=== PATIENT | male | born 1950 | race Caucasian/White ===

== ENCOUNTER 2023-02-15 20:14 | Inpatient (IN) | payer MEDICARE ==
[2023-02-16 00:20] VITALS: BMI 28.5
[2023-02-16 00:58] LABS: Troponin I 0.096 ng/mL (< 0.028)
[2023-02-16] MEDS ORDERED: Albuterol 2.5 MG (3 mL) NEB NEB PRN (03:24)
[2023-02-16] MEDS ORDERED: dilTIAZem 125 MG in Sodium Chloride 0.9% 100 ML IVPB SCH ×2 (03:30→04:30)
[2023-02-16] MEDS ORDERED: dilTIAZem 25 MG/5 ML VIAL SLOW IVP SCH (04:00)
[2023-02-16] MEDS ORDERED: Furosemide 40 MG (4 mL) VIAL SLOW IVP SCH ×2 (04:00→14:00)
[2023-02-16 04:16] LABS: #Neutrophils 9.9 10x3/uL (1.5-8.4); %Basophils 0.1 % (0.0-2.0); %Eosinophils 0.3 % (0.0-6.0); %Lymphocytes 5.9 % (18.0-47.0); %Monocytes 8.1 % (0.0-10.0); %Neutrophils 84.8 % (40.0-75.0); Hematocrit 32.8 % (38.8-50.0); Hemoglobin 9.8 g/dL (13.5-17.5); Mean Corpuscular HGB CONC 29.9 g/dL (32.0-36.0); Mean Corpuscular Hemoglobin 22.3 pg (27.0-33.0); Mean Corpuscular Volume 74.5 fl (81.2-95.1); Platelet Count 303 10x3/uL (150-450); RBC Distribution Width 18.9 % (11.5-14.5); White Blood Cell (WBC) Count 11.7 10x3/uL (3.5-10.5)
[2023-02-16 04:17] LABS: Anion Gap 15 mmol/L (10-20); BUN (Urea Nitrogen) 33 mg/dL (8.4-25.7); Calc. Creatinine Clearance 56 mL/min (70-130); Calcium 8.9 mg/dL (7.8-10.44); Carbon Dioxide 27 mmol/L (23-31); Chloride 103 mmol/L (98-107); Estimated GFR 48; Glucose 103 mg/dL (83-110); Magnesium 2.3 mg/dL (1.6-2.6); Potassium 4.8 mmol/L (3.5-5.1); Sodium 140 mmol/L (136-145)
[2023-02-16 04:24] LABS: Troponin I 0.103 ng/mL (< 0.028)
[2023-02-16] MEDS: methylPREDNISolone Sod Succ 40 MG VIAL IVP SCH (04:40)
[2023-02-16] MEDS: Nitroglycerin 2% Ointment 1 INCH/1 GM Packet TOP SCH ×3 (04:40→20:40)
[2023-02-16 05:20] LABS: Anisocytosis MODERATE=16-30 cells (100X) (0-5/hpf); Hypochromia SLIGHT = 6-15 cells (100X) (0-5/hpf); Macrocytosis SLIGHT = 6-15 cells (100X) (0-5/hpf); Microcytosis MODERATE=15-30 cells (100X) (0-5/hpf); Poikilocytosis SLIGHT = 6-15 cells (100X) (0-5/hpf); Polychromasia SLIGHT = 2-3 cells (100X) (0-2/hpf)
[2023-02-16 05:22] LABS: Target Cells MODERATE= 6-15 cells (100X) (0-1/hpf)
[2023-02-16 05:45] LABS: Legionella Urinary Ag Negative (Negative); Strep pneumo Urine Ag NEGATIVE (NEGATIVE)
[2023-02-16 05:59] LABS: SARS-CoV-2 NAA Rapid Test Not Detected (NotDetected)
[2023-02-16 06:29] LABS: Troponin I 0.114 ng/mL (< 0.028)
[2023-02-16] MEDS ORDERED: Digoxin 0.5 MG/2 ML AMP SLOW IVP SCH (08:00)
[2023-02-16] MEDS: Carvedilol 6.25 MG TAB PO SCH ×2 (08:16→17:39)
[2023-02-16] MEDS: Clopidogrel Bisulfate 75 MG TAB PO SCH (08:16)
[2023-02-16] MEDS: Loratadine 10 MG TAB PO SCH (08:16)
[2023-02-16] MEDS: Cilostazol 100 MG TAB PO SCH (08:59)
[2023-02-16] MEDS ORDERED: Enoxaparin 40 MG (0.4 mL) SYRINGE SC SCH (09:00)
[2023-02-16] MEDS ORDERED: Atorvastatin Calcium 40 MG TAB PO SCH (09:00)
[2023-02-16] MEDS: Ipratropium/Albuterol 3 ML NEB NEB SCH ×4 (09:00→20:08)
[2023-02-16] MEDS ORDERED: Aspirin 81 mg Enteric Coated Tablet PO SCH (09:00)
[2023-02-16] MEDS ORDERED: Amlodipine 10 MG TAB PO SCH (09:00)
[2023-02-16] MEDS ORDERED: Amiodarone 200 MG TAB PO SCH ×3 (10:00→21:00)
[2023-02-16] MEDS: Sacubitril 24MG/Valsartan 26 MG TAB PO SCH ×2 (10:39→20:40)
[2023-02-16] MEDS ORDERED: Apixaban 5 MG TAB PO SCH (11:00)
[2023-02-16] MEDS: Metoprolol Tartrate 5 MG (5 mL) VIAL IVP PRN (13:00)
[2023-02-16] MEDS: Atorvastatin Calcium 40 MG TAB PO SCH (20:40)
[2023-02-16] MEDS: Apixaban 5 MG TAB PO SCH (20:40)
[2023-02-17] MEDS: Metoprolol Tartrate 5 MG (5 mL) VIAL IVP PRN (00:13)
[2023-02-17] MEDS: methylPREDNISolone Sod Succ 40 MG VIAL IVP SCH (03:55)
[2023-02-17] MEDS: Nitroglycerin 2% Ointment 1 INCH/1 GM Packet TOP SCH ×3 (03:55→20:08)
[2023-02-17 04:17] LABS: #Monocytes 0.8 10x3/uL (0.0-1.1); #Neutrophils 9.9 10x3/uL (1.5-8.4); %Basophils 0.1 % (0.0-2.0); %Lymphocytes 4.6 % (18.0-47.0); %Monocytes 6.7 % (0.0-10.0); Hematocrit 33.5 % (38.8-50.0); Mean Corpuscular HGB CONC 29.9 g/dL (32.0-36.0); Mean Corpuscular Hemoglobin 22.2 pg (27.0-33.0); Mean Corpuscular Volume 74.3 fl (81.2-95.1); Mean Platelet Volume 10.2 fl (7.4-10.4); Platelet Count 315 10x3/uL (150-450); RBC Distribution Width 18.4 % (11.5-14.5); Red Blood Cell (RBC) Count 4.51 10x6/uL (4.32-5.72); White Blood Cell (WBC) Count 11.2 10x3/uL (3.5-10.5)
[2023-02-17 04:28] LABS: Anion Gap 12 mmol/L (10-20); BUN (Urea Nitrogen) 33 mg/dL (8.4-25.7); Calc. Creatinine Clearance 74 mL/min (70-130); Calcium 8.6 mg/dL (7.8-10.44); Carbon Dioxide 27 mmol/L (23-31); Chloride 103 mmol/L (98-107); Estimated GFR 68; Glucose 106 mg/dL (83-110); Potassium 4.5 mmol/L (3.5-5.1); Sodium 137 mmol/L (136-145)
[2023-02-17 06:59] LABS: Anisocytosis MODERATE=16-30 cells (100X) (0-5/hpf); Hypochromia MODERATE=16-30 cells (100X) (0-5/hpf); Macrocytosis SLIGHT = 6-15 cells (100X) (0-5/hpf); Microcytosis MODERATE=15-30 cells (100X) (0-5/hpf); Poikilocytosis SLIGHT = 6-15 cells (100X) (0-5/hpf); Polychromasia SLIGHT = 2-3 cells (100X) (0-2/hpf)
[2023-02-17 07:00] LABS: Ovalocytes SLIGHT = 2-5 cells (100X) (0-1/hpf)
[2023-02-17] MEDS: Carvedilol 6.25 MG TAB PO SCH ×2 (07:53→19:14)
[2023-02-17] MEDS: Sacubitril 24MG/Valsartan 26 MG TAB PO SCH ×2 (07:53→20:07)
[2023-02-17] MEDS: Loratadine 10 MG TAB PO SCH (07:53)
[2023-02-17] MEDS: Apixaban 5 MG TAB PO SCH ×2 (07:54→20:07)
[2023-02-17] MEDS: Cilostazol 100 MG TAB PO SCH (07:55)
[2023-02-17] MEDS: Clopidogrel Bisulfate 75 MG TAB PO SCH (07:55)
[2023-02-17] MEDS: Ipratropium/Albuterol 3 ML NEB NEB SCH ×2 (08:18→10:00)
[2023-02-17] MEDS: Furosemide 40 MG (4 mL) VIAL SLOW IVP SCH (09:35)
[2023-02-17] MEDS: Ipratropium Bromide 2.5 ml Neb NEB SCH ×3 (10:00→19:13)
[2023-02-17] MEDS ORDERED: PROPOFOL 20 ML ONE (11:33)
[2023-02-17] MEDS ORDERED: Phenylephrine 40 MG/NS 250 ML 0 ML ONE (11:33)
[2023-02-17] MEDS ORDERED: Lidocaine 1% PF 5 ML VIAL ONE (11:34)
[2023-02-17] MEDS ORDERED: Benzocaine/Menthol 1 LOZ LOZ PO PRN (16:25)
[2023-02-17] MEDS: Atorvastatin Calcium 40 MG TAB PO SCH (20:07)
[2023-02-17] MEDS: Doxycycline 100 MG in Sodium Chloride 0.9% 100 ML IVPB SCH (20:07)
[2023-02-17] MEDS: Amiodarone 200 MG TAB PO SCH (20:08)
[2023-02-18] MEDS: methylPREDNISolone Sod Succ 40 MG VIAL IVP SCH (05:00)
[2023-02-18] MEDS: Nitroglycerin 2% Ointment 1 INCH/1 GM Packet TOP SCH ×2 (05:00→13:12)
[2023-02-18] MEDS: Ipratropium Bromide 2.5 ml Neb NEB SCH ×2 (07:20→11:15)
[2023-02-18 07:47] LABS: #Neutrophils 11.6 10x3/uL (1.5-8.4); %Basophils 0.1 % (0.0-2.0); %Eosinophils 0.1 % (0.0-6.0); %Lymphocytes 3.4 % (18.0-47.0); %Monocytes 7.4 % (0.0-10.0); %Neutrophils 88.4 % (40.0-75.0); Hematocrit 36.8 % (38.8-50.0); Hemoglobin 10.9 g/dL (13.5-17.5); Mean Corpuscular HGB CONC 29.6 g/dL (32.0-36.0); Mean Corpuscular Hemoglobin 22.1 pg (27.0-33.0); Mean Corpuscular Volume 74.5 fl (81.2-95.1); Mean Platelet Volume 10.3 fl (7.4-10.4); Platelet Count 328 10x3/uL (150-450); RBC Distribution Width 19.2 % (11.5-14.5); Red Blood Cell (RBC) Count 4.94 10x6/uL (4.32-5.72); White Blood Cell (WBC) Count 13.1 10x3/uL (3.5-10.5)
[2023-02-18 08:09] LABS: Anion Gap 14 mmol/L (10-20); BUN (Urea Nitrogen) 34 mg/dL (8.4-25.7); Calc. Creatinine Clearance 69 mL/min (70-130); Calcium 8.5 mg/dL (7.8-10.44); Carbon Dioxide 22 mmol/L (23-31); Chloride 106 mmol/L (98-107); Estimated GFR 69; Glucose 95 mg/dL (83-110); Potassium 5.1 mmol/L (3.5-5.1); Sodium 137 mmol/L (136-145)
[2023-02-18 08:18] VITALS: TEMP 97.6
[2023-02-18] MEDS: Doxycycline 100 MG in Sodium Chloride 0.9% 100 ML IVPB SCH ×2 (08:41→10:49)
[2023-02-18] MEDS: Furosemide 40 MG (4 mL) VIAL SLOW IVP SCH (08:41)
[2023-02-18] MEDS: Cilostazol 100 MG TAB PO SCH (08:41)
[2023-02-18] MEDS: Amiodarone 200 MG TAB PO SCH (08:42)
[2023-02-18] MEDS: Carvedilol 6.25 MG TAB PO SCH (08:42)
[2023-02-18] MEDS: Loratadine 10 MG TAB PO SCH (08:42)
[2023-02-18] MEDS: Apixaban 5 MG TAB PO SCH (08:42)
[2023-02-18] MEDS: Sacubitril 24MG/Valsartan 26 MG TAB PO SCH (08:42)
[2023-02-18] MEDS: Clopidogrel Bisulfate 75 MG TAB PO SCH (08:42)
[2023-02-18 12:30] VITALS: BP 159/63
== END 2023-02-18 13:30 | disposition home or self-care (01) | DRG 308 ==
LOC: CSHTELE 23:18 → UNDOADMIN 23:18 → CSHTELE 02-16 03:16
PROVIDERS: ADMIT Family Medicine; ATTEND Internal Medicine
PROC: 5A2204Z Restoration of Cardiac Rhythm, Single (ICD-10-PCS; principal; 2023-02-16)
PROC: B246ZZ4 Ultrasonography of Right and Left Heart, Transesophageal (ICD-10-PCS; 2023-02-16)
DX: I48.0 Paroxysmal atrial fibrillation (principal); I50.23 Acute on chronic systolic (congestive) heart failure; I24.89 Other forms of acute ischemic heart disease; J44.1 Chronic obstructive pulmonary disease with (acute) exacerbation; I11.0 Hypertensive heart disease with heart failure; I47.10 Supraventricular tachycardia, unspecified; I48.92 Unspecified atrial flutter; I73.9 Peripheral vascular disease, unspecified; E78.5 Hyperlipidemia, unspecified; F17.210 Nicotine dependence, cigarettes, uncomplicated; I25.10 Atherosclerotic heart disease of native coronary artery without angina pectoris; K21.9 Gastro-esophageal reflux disease without esophagitis; Z88.8 Allergy status to other drugs, medicaments and biological substances; Z79.899 Other long term (current) drug therapy; Z79.82 Long term (current) use of aspirin; Z98.890 Other specified postprocedural states; Z86.73 Personal history of transient ischemic attack (TIA), and cerebral infarction without residual deficits; Z95.1 Presence of aortocoronary bypass graft; Z11.52 Encounter for screening for COVID-19
CPT/HCPCS: 36415; 71045; 71046; 80048; 83735; 83880; 84484; 85025; 87070; 87205; 87449; 87804; 87899; 92960; 93005; 93010; 93312; 94640; 94760; J1160; J1650; J1940; J2704; J2920; J3490; J7620; U0002

== ENCOUNTER 2023-04-04 14:50 | Inpatient (IN) | payer MEDICARE ==
[2023-04-04 15:28] LABS: #Eosinphils 0.1 10x3/uL (0.0-0.5); #Monocytes 0.9 10x3/uL (0.0-1.1); #Neutrophils 11.9 10x3/uL (1.5-8.4); %Basophils 0.3 % (0.0-2.0); %Eosinophils 0.4 % (0.0-6.0); %Lymphocytes 3.8 % (18.0-47.0); %Monocytes 6.7 % (0.0-10.0); Hematocrit 31.1 % (38.8-50.0); Hemoglobin 9.4 g/dL (13.5-17.5); Mean Corpuscular HGB CONC 30.2 g/dL (32.0-36.0); Mean Corpuscular Hemoglobin 25.3 pg (27.0-33.0); Mean Corpuscular Volume 83.8 fl (81.2-95.1); Mean Platelet Volume 9.7 fl (7.4-10.4); Platelet Count 329 10x3/uL (150-450); RBC Distribution Width 18.5 % (11.5-14.5); Red Blood Cell (RBC) Count 3.71 10x6/uL (4.32-5.72); White Blood Cell (WBC) Count 13.8 10x3/uL (3.5-10.5)
[2023-04-04 15:31] LABS: ALT (SGPT) 20 U/L (8-55); AST (SGOT) 18 U/L (5-34); Albumin 3.6 g/dL (3.4-4.8); Alkaline Phosphatase 54 U/L (40-110); Anion Gap 12 mmol/L (10-20); BUN (Urea Nitrogen) 27 mg/dL (8.4-25.7); Bilirubin, Total 0.9 mg/dL (0.2-1.2); Calc. Creatinine Clearance 0 mL/min (70-130); Calcium 8.4 mg/dL (7.8-10.44); Carbon Dioxide 25 mmol/L (23-31); Chloride 104 mmol/L (98-107); Estimated GFR 69; Globulin 2.3 g/dL (2.4-3.5); Glucose 85 mg/dL (83-110); INR-International Normal Ratio 1.1; PTT 25.9 sec (22.0-33.0); Protein, Total 5.9 g/dL (5.8-8.1); Prothrombin Time 11.7 sec (9.5-12.1); Sodium 137 mmol/L (136-145)
[2023-04-04 15:35] LABS: Troponin I 0.079 ng/mL (< 0.028)
[2023-04-04] MEDS ORDERED: dilTIAZem 25 MG/5 ML VIAL ONE (15:42)
[2023-04-04] MEDS ORDERED: Magnesium 2 GM/50 ML BAG (IN WATER) ONE (15:43)
[2023-04-04] MEDS ORDERED: Digoxin 0.5 MG/2 ML AMP ONE (15:43)
[2023-04-04] MEDS ORDERED: Aspirin Chewable 81 MG TAB ONE (16:28)
[2023-04-04 17:30] LABS: Influenza A by NAA Not Detected (NotDetected); Influenza B by NAA Not Detected (NotDetected); SARS-CoV-2 NAA Rapid Test Not Detected (NotDetected)
[2023-04-04 17:50] LABS: Troponin I 0.068 ng/mL (< 0.028)
[2023-04-04 18:02] LABS: Bilirubin Neg (Negative); Blood, Urine Negative (Negative); Clarity Clear (Clear); Glucose, Urine (Dipstick) Normal (Negative); Ketone, Urine Negative (Negative); Leukocyte 25 (Negative); Nitrite Negative (Negative); Protein, Urine (Dipstick) 30 mg/dl (Neg-Trace); Specific Gravity, Urine 1.015 (1.005-1.030); Urobilinogen Normal mg/dL (Less than 2)
[2023-04-04 18:15] LABS: CAUTI Indications for Culture Pelvic or flank pain; RBC/HPF 0-3 HPF (0-3); Squamous Epithelial 0-3 HPF (0-3)
[2023-04-04 18:16] LABS: Bacteria/HPF 1+ HPF (None Seen); Mucous/LPF 1+ LPF (<2+)
[2023-04-04] MEDS ORDERED: Acetaminophen 650 MG Suppository PR PRN (18:16)
[2023-04-04 18:17] LABS: Urine Culture Reflex No No
[2023-04-04 20:46] LABS: Troponin I 0.073 ng/mL (< 0.028)
[2023-04-04] MEDS: Apixaban 5 MG TAB PO SCH (21:26)
[2023-04-04] MEDS: Sacubitril 24MG/Valsartan 26 MG TAB PO SCH (21:32)
[2023-04-04] MEDS: Furosemide 40 MG TAB PO SCH (21:32)
[2023-04-04] MEDS: Atorvastatin Calcium 40 MG TAB PO SCH (21:32)
[2023-04-05 07:22] LABS: #Eosinphils 0.1 10x3/uL (0.0-0.5); #Monocytes 0.8 10x3/uL (0.0-1.1); #Neutrophils 10.3 10x3/uL (1.5-8.4); %Basophils 0.3 % (0.0-2.0); %Eosinophils 0.9 % (0.0-6.0); %Lymphocytes 3.6 % (18.0-47.0); %Monocytes 6.8 % (0.0-10.0); %Neutrophils 85.5 % (40.0-75.0); Hematocrit 29.3 % (38.8-50.0); Hemoglobin 8.7 g/dL (13.5-17.5); Mean Corpuscular HGB CONC 29.7 g/dL (32.0-36.0); Mean Corpuscular Hemoglobin 24.6 pg (27.0-33.0); Mean Corpuscular Volume 82.8 fl (81.2-95.1); Mean Platelet Volume 9.9 fl (7.4-10.4); Platelet Count 312 10x3/uL (150-450); RBC Distribution Width 18.6 % (11.5-14.5); Red Blood Cell (RBC) Count 3.54 10x6/uL (4.32-5.72)
[2023-04-05 07:26] LABS: Anion Gap 12 mmol/L (10-20); BUN (Urea Nitrogen) 21 mg/dL (8.4-25.7); Calc. Creatinine Clearance 76 mL/min (70-130); Carbon Dioxide 27 mmol/L (23-31); Chloride 103 mmol/L (98-107); Estimated GFR 85; Glucose 94 mg/dL (83-110); Potassium 3.9 mmol/L (3.5-5.1); Sodium 138 mmol/L (136-145)
[2023-04-05] MEDS: Carvedilol 6.25 MG TAB PO SCH ×2 (08:55→10:12)
[2023-04-05] MEDS: Clopidogrel Bisulfate 75 MG TAB PO SCH (08:55)
[2023-04-05] MEDS: Furosemide 40 MG TAB PO SCH (08:55)
[2023-04-05] MEDS: Amiodarone 200 MG TAB PO SCH (08:55)
[2023-04-05] MEDS: Nitroglycerin 0.4 MG TAB (25 Tab Bottle) SL PRN (18:18)
[2023-04-05] MEDS: Carvedilol 12.5 MG TAB PO SCH (18:18)
[2023-04-05 18:47] LABS: Troponin I 0.097 ng/mL (< 0.028)
[2023-04-05 19:21] LABS: Actual Bicarbonate (HCO3a) 29.7 mEq/L (22-28); Analyzer IN Cardio CS ICU; Base Excess (BEa) 5.8 mEq/L (-2.0 to +3.0); CO2 Tension 40.2 mmHg (35.0-45.0); Calcium, Ionized (arterial) 1.08 mmol/L (1.12-1.30); Critical Notified By: CP.PH; Critical Notified Whom: RN-Brianna; Hematocrit-ABG 27 % (42.0-52.0); Hemoglobin (Hb) 9.3 g/dL (14.0-18.0); O2 Tension (PaO2), arterial 66.8 mmHg (> 70.0); Potassium - ABG Lab 4.06 mmol/L (3.70-5.30); Puncture Site LRA; RapidComm Collect By CP.PH; pH, Arterial 7.486 (7.35-7.45)
[2023-04-05] MEDS: Ipratropium/Albuterol 3 ML NEB NEB PRN (19:40)
[2023-04-05] MEDS: Potassium Chloride 20 MEQ TAB PO SCH (19:53)
[2023-04-05] MEDS: Atorvastatin Calcium 40 MG TAB PO SCH (20:45)
[2023-04-05] MEDS: Furosemide 40 MG (4 mL) VIAL SLOW IVP SCH (23:36)
[2023-04-06 05:35] LABS: #Eosinphils 0.1 10x3/uL (0.0-0.5); #Monocytes 0.7 10x3/uL (0.0-1.1); %Basophils 0.3 % (0.0-2.0); %Eosinophils 0.9 % (0.0-6.0); %Lymphocytes 3.1 % (18.0-47.0); %Monocytes 6.1 % (0.0-10.0); %Neutrophils 85.6 % (40.0-75.0); Hematocrit 30.3 % (38.8-50.0); Hemoglobin 9.1 g/dL (13.5-17.5); Mean Corpuscular Hemoglobin 24.7 pg (27.0-33.0); Mean Corpuscular Volume 82.1 fl (81.2-95.1); Mean Platelet Volume 9.8 fl (7.4-10.4); Platelet Count 333 10x3/uL (150-450); RBC Distribution Width 18.5 % (11.5-14.5); Red Blood Cell (RBC) Count 3.69 10x6/uL (4.32-5.72); White Blood Cell (WBC) Count 11.7 10x3/uL (3.5-10.5)
[2023-04-06 05:42] LABS: Anion Gap 13 mmol/L (10-20); BUN (Urea Nitrogen) 24 mg/dL (8.4-25.7); Calc. Creatinine Clearance 64 mL/min (70-130); Calcium 8.2 mg/dL (7.8-10.44); Carbon Dioxide 30 mmol/L (23-31); Chloride 99 mmol/L (98-107); Estimated GFR 69; Glucose 94 mg/dL (83-110); Potassium 4.4 mmol/L (3.5-5.1); Sodium 138 mmol/L (136-145)
[2023-04-06 05:49] LABS: Troponin I 0.073 ng/mL (< 0.028)
[2023-04-06] MEDS: Furosemide 20 MG (2 mL) VIAL SLOW IVP SCH (10:49)
[2023-04-06] MEDS: Digoxin 0.125 MG TAB PO SCH (14:45)
[2023-04-06] MEDS: Carvedilol 3.125 MG TAB PO SCH (17:21)
[2023-04-06] MEDS: Acetaminophen 325 MG TAB PO PRN (20:51)
[2023-04-06] MEDS: Sacubitril 24MG/Valsartan 26 MG TAB PO SCH (21:01)
[2023-04-07 03:54] LABS: #Basophils 0.1 10x3/uL (0.0-0.2); #Eosinphils 0.1 10x3/uL (0.0-0.5); #Monocytes 0.8 10x3/uL (0.0-1.1); #Neutrophils 7.4 10x3/uL (1.5-8.4); %Basophils 0.5 % (0.0-2.0); %Eosinophils 1.2 % (0.0-6.0); %Lymphocytes 5.1 % (18.0-47.0); %Monocytes 8.4 % (0.0-10.0); %Neutrophils 80.5 % (40.0-75.0); Hematocrit 29.5 % (38.8-50.0); Hemoglobin 9.1 g/dL (13.5-17.5); Mean Corpuscular HGB CONC 30.8 g/dL (32.0-36.0); Mean Corpuscular Hemoglobin 25.1 pg (27.0-33.0); Mean Corpuscular Volume 81.3 fl (81.2-95.1); Mean Platelet Volume 9.8 fl (7.4-10.4); Platelet Count 300 10x3/uL (150-450); RBC Distribution Width 18.8 % (11.5-14.5); Red Blood Cell (RBC) Count 3.63 10x6/uL (4.32-5.72); White Blood Cell (WBC) Count 9.2 10x3/uL (3.5-10.5)
[2023-04-07 04:21] LABS: Anion Gap 11 mmol/L (10-20); BUN (Urea Nitrogen) 36 mg/dL (8.4-25.7); Calc. Creatinine Clearance 54 mL/min (70-130); Calcium 8.3 mg/dL (7.8-10.44); Carbon Dioxide 28 mmol/L (23-31); Chloride 101 mmol/L (98-107); Estimated GFR 58; Glucose 102 mg/dL (83-110); Potassium 4.3 mmol/L (3.5-5.1); Sodium 136 mmol/L (136-145)
[2023-04-07] MEDS ORDERED: Furosemide 40 MG TAB PO SCH (09:00)
[2023-04-07] MEDS: Valsartan 80 MG TAB PO SCH (09:04)
[2023-04-07] MEDS: Digoxin 0.125 MG TAB PO SCH (09:05)
[2023-04-08 03:48] LABS: #Eosinphils 0.2 10x3/uL (0.0-0.5); #Monocytes 0.7 10x3/uL (0.0-1.1); #Neutrophils 7.4 10x3/uL (1.5-8.4); %Basophils 0.4 % (0.0-2.0); %Eosinophils 2.2 % (0.0-6.0); %Lymphocytes 5.5 % (18.0-47.0); %Monocytes 7.8 % (0.0-10.0); %Neutrophils 81.6 % (40.0-75.0); Hematocrit 30.2 % (38.8-50.0); Mean Corpuscular HGB CONC 29.8 g/dL (32.0-36.0); Mean Corpuscular Hemoglobin 24.5 pg (27.0-33.0); Mean Corpuscular Volume 82.3 fl (81.2-95.1); Mean Platelet Volume 10.1 fl (7.4-10.4); Platelet Count 304 10x3/uL (150-450); RBC Distribution Width 18.7 % (11.5-14.5); Red Blood Cell (RBC) Count 3.67 10x6/uL (4.32-5.72)
[2023-04-08 04:17] LABS: Anion Gap 10 mmol/L (10-20); BUN (Urea Nitrogen) 31 mg/dL (8.4-25.7); Calc. Creatinine Clearance 66 mL/min (70-130); Calcium 8.2 mg/dL (7.8-10.44); Carbon Dioxide 29 mmol/L (23-31); Chloride 100 mmol/L (98-107); Estimated GFR 74; Glucose 118 mg/dL (83-110); Potassium 4.6 mmol/L (3.5-5.1); Sodium 134 mmol/L (136-145)
[2023-04-08] MEDS: Furosemide 40 MG TAB PO SCH (06:57)
[2023-04-08] MEDS ORDERED: Amoxicillin/Potassium Clav 500 MG TAB PO SCH (13:15)
[2023-04-08] MEDS: Amoxicillin/Potassium Clav 875 MG TAB PO SCH ×2 (13:56→21:19)
[2023-04-09 03:58] LABS: #Eosinphils 0.2 10x3/uL (0.0-0.5); #Monocytes 0.8 10x3/uL (0.0-1.1); #Neutrophils 6.2 10x3/uL (1.5-8.4); %Basophils 0.4 % (0.0-2.0); %Eosinophils 2.3 % (0.0-6.0); %Lymphocytes 6.8 % (18.0-47.0); %Monocytes 9.6 % (0.0-10.0); %Neutrophils 78.7 % (40.0-75.0); Hematocrit 28.5 % (38.8-50.0); Hemoglobin 8.9 g/dL (13.5-17.5); Mean Corpuscular HGB CONC 31.2 g/dL (32.0-36.0); Mean Corpuscular Volume 80.1 fl (81.2-95.1); Mean Platelet Volume 9.7 fl (7.4-10.4); Platelet Count 265 10x3/uL (150-450); RBC Distribution Width 18.6 % (11.5-14.5); Red Blood Cell (RBC) Count 3.56 10x6/uL (4.32-5.72); White Blood Cell (WBC) Count 7.8 10x3/uL (3.5-10.5)
[2023-04-09 04:17] LABS: Anion Gap 12 mmol/L (10-20); BUN (Urea Nitrogen) 24 mg/dL (8.4-25.7); Calc. Creatinine Clearance 66 mL/min (70-130); Calcium 8.3 mg/dL (7.8-10.44); Carbon Dioxide 26 mmol/L (23-31); Chloride 100 mmol/L (98-107); Estimated GFR 73; Glucose 81 mg/dL (83-110); Potassium 4.3 mmol/L (3.5-5.1); Sodium 134 mmol/L (136-145)
[2023-04-10 04:59] LABS: #Basophils 0.1 10x3/uL (0.0-0.2); #Eosinphils 0.2 10x3/uL (0.0-0.5); #Monocytes 0.9 10x3/uL (0.0-1.1); %Basophils 0.5 % (0.0-2.0); %Eosinophils 1.9 % (0.0-6.0); %Lymphocytes 5.9 % (18.0-47.0); %Monocytes 9.1 % (0.0-10.0); %Neutrophils 81.2 % (40.0-75.0); Hematocrit 27.3 % (38.8-50.0); Hemoglobin 8.5 g/dL (13.5-17.5); Mean Corpuscular HGB CONC 31.1 g/dL (32.0-36.0); Mean Corpuscular Hemoglobin 25.1 pg (27.0-33.0); Mean Corpuscular Volume 80.5 fl (81.2-95.1); Mean Platelet Volume 10.4 fl (7.4-10.4); Platelet Count 263 10x3/uL (150-450); RBC Distribution Width 18.6 % (11.5-14.5); Red Blood Cell (RBC) Count 3.39 10x6/uL (4.32-5.72); White Blood Cell (WBC) Count 9.8 10x3/uL (3.5-10.5)
[2023-04-10 05:04] LABS: Anion Gap 13 mmol/L (10-20); BUN (Urea Nitrogen) 32 mg/dL (8.4-25.7); Calc. Creatinine Clearance 64 mL/min (70-130); Calcium 8.3 mg/dL (7.8-10.44); Carbon Dioxide 25 mmol/L (23-31); Chloride 104 mmol/L (98-107); Estimated GFR 71; Glucose 93 mg/dL (83-110); Potassium 4.3 mmol/L (3.5-5.1); Sodium 138 mmol/L (136-145)
[2023-04-10] MEDS ORDERED: PROPOFOL 20 ML ONE (07:40)
[2023-04-10] MEDS ORDERED: Midazolam HCl 2 mg/2 ml Vial ONE (07:42)
[2023-04-10] MEDS ORDERED: PHENYLEPHRINE-NS 100 MCG/ML 10 ML SYRINGE ONE (08:35)
[2023-04-10] MEDS: Amiodarone 200 MG TAB PO SCH (09:54)
[2023-04-10] MEDS ORDERED: Communication Order-Pharmacy FS SCH (13:00)
[2023-04-10] MEDS: Atorvastatin Calcium 40 MG TAB PO SCH (21:26)
[2023-04-10] MEDS: Enoxaparin 80 MG (0.8 mL) SYRINGE SC SCH (21:27)
[2023-04-11 04:27] LABS: #Eosinphils 0.2 10x3/uL (0.0-0.5); #Monocytes 0.8 10x3/uL (0.0-1.1); #Neutrophils 7.4 10x3/uL (1.5-8.4); %Basophils 0.4 % (0.0-2.0); %Lymphocytes 7.2 % (18.0-47.0); %Monocytes 8.6 % (0.0-10.0); %Neutrophils 79.6 % (40.0-75.0); Hemoglobin 7.5 g/dL (13.5-17.5); Mean Corpuscular HGB CONC 31.3 g/dL (32.0-36.0); Mean Corpuscular Hemoglobin 25.2 pg (27.0-33.0); Mean Corpuscular Volume 80.5 fl (81.2-95.1); Mean Platelet Volume 10.6 fl (7.4-10.4); Platelet Count 232 10x3/uL (150-450); RBC Distribution Width 18.9 % (11.5-14.5); Red Blood Cell (RBC) Count 2.98 10x6/uL (4.32-5.72); White Blood Cell (WBC) Count 9.3 10x3/uL (3.5-10.5)
[2023-04-11 04:33] LABS: ALT (SGPT) 19 U/L (8-55); AST (SGOT) 19 U/L (5-34); Albumin 2.8 g/dL (3.4-4.8); Alkaline Phosphatase 50 U/L (40-110); Anion Gap 12 mmol/L (10-20); BUN (Urea Nitrogen) 37 mg/dL (8.4-25.7); Bilirubin, Total 0.6 mg/dL (0.2-1.2); Calc. Creatinine Clearance 69 mL/min (70-130); Calcium 8.2 mg/dL (7.8-10.44); Carbon Dioxide 25 mmol/L (23-31); Chloride 105 mmol/L (98-107); Estimated GFR 78; Globulin 2.5 g/dL (2.4-3.5); Glucose 89 mg/dL (83-110); Potassium 4.6 mmol/L (3.5-5.1); Protein, Total 5.3 g/dL (5.8-8.1); Sodium 137 mmol/L (136-145)
[2023-04-11 05:35] LABS: INR-International Normal Ratio 1.1; PTT 34.5 sec (22.0-33.0); Prothrombin Time 12.3 sec (9.5-12.1)
[2023-04-11] MEDS: Amlodipine 10 MG TAB PO SCH ×2 (05:41→05:44)
[2023-04-11] MEDS ORDERED: Amlodipine 5 MG TAB PO SCH (09:00)
[2023-04-11] MEDS: Empagliflozin 10 MG TAB PO SCH (09:01)
[2023-04-11] MEDS: Lidocaine Viscous Sol 2% 15 ml UD Cup SSW PRN (10:38)
[2023-04-12 03:51] LABS: ALT (SGPT) 17 U/L (8-55); AST (SGOT) 20 U/L (5-34); Albumin 2.9 g/dL (3.4-4.8); Alkaline Phosphatase 55 U/L (40-110); Anion Gap 12 mmol/L (10-20); BUN (Urea Nitrogen) 42 mg/dL (8.4-25.7); Bilirubin, Total 0.6 mg/dL (0.2-1.2); Calc. Creatinine Clearance 70 mL/min (70-130); Calcium 8.3 mg/dL (7.8-10.44); Carbon Dioxide 25 mmol/L (23-31); Chloride 105 mmol/L (98-107); Estimated GFR 79; Globulin 2.6 g/dL (2.4-3.5); Glucose 86 mg/dL (83-110); Potassium 4.5 mmol/L (3.5-5.1); Protein, Total 5.5 g/dL (5.8-8.1); Sodium 137 mmol/L (136-145)
[2023-04-12 04:26] LABS: #Basophils 0.1 10x3/uL (0.0-0.2); #Eosinphils 0.2 10x3/uL (0.0-0.5); #Monocytes 0.6 10x3/uL (0.0-1.1); #Neutrophils 7.5 10x3/uL (1.5-8.4); %Basophils 0.5 % (0.0-2.0); %Eosinophils 1.9 % (0.0-6.0); %Lymphocytes 7.4 % (18.0-47.0); %Monocytes 6.4 % (0.0-10.0); %Neutrophils 81.3 % (40.0-75.0); Hematocrit 22.9 % (38.8-50.0); Hemoglobin 6.9 g/dL (13.5-17.5); Mean Corpuscular HGB CONC 30.1 g/dL (32.0-36.0); Mean Corpuscular Hemoglobin 24.8 pg (27.0-33.0); Mean Corpuscular Volume 82.4 fl (81.2-95.1); Mean Platelet Volume 10.5 fl (7.4-10.4); Platelet Count 255 10x3/uL (150-450); RBC Distribution Width 19.1 % (11.5-14.5); Red Blood Cell (RBC) Count 2.78 10x6/uL (4.32-5.72); White Blood Cell (WBC) Count 9.2 10x3/uL (3.5-10.5)
[2023-04-12] MEDS ORDERED: Adenosine 6 mg (2 mL) VIAL ONE (09:30)
[2023-04-12] MEDS ORDERED: Verapamil 5 MG/2 ML VIAL ONE (09:30)
[2023-04-12] MEDS ORDERED: Heparin 10,000 UNITS/ 10 ML VIAL ONE ×2 (09:30→10:56)
[2023-04-12] MEDS ORDERED: Atropine Sulfate 1 mg/1 ml Vial ONE (09:30)
[2023-04-12] MEDS ORDERED: Nitroglycerin 50 MG/250 ML BOT 250 ML ONE (09:30)
[2023-04-12] MEDS ORDERED: Lidocaine 1% PF 5 ML VIAL ONE (09:31)
[2023-04-12] MEDS ORDERED: Midazolam HCl 2 mg/2 ml Vial ONE (09:31)
[2023-04-12] MEDS ORDERED: fentaNYL 50 mcg/mL 1 mL Vial ONE (09:31)
[2023-04-12] MEDS ORDERED: Iopamidol 300 61% 100 ML VIAL FS ONE (09:50)
[2023-04-12] MEDS ORDERED: Lidocaine 1% (PF) 30 ML VIAL ONE (10:20)
[2023-04-12] MEDS ORDERED: Nitroglycerin 0.4 MG TAB (25 Tab Bottle) SL PRN (11:44)
[2023-04-12] MEDS ORDERED: Sodium Chloride 0.9% 200 ML IV PRN (11:44)
[2023-04-12] MEDS ORDERED: Clopidogrel Bisulfate 75 MG TAB ONE (13:14)
[2023-04-12 15:24] LABS: Hematocrit 23.5 % (38.8-50.0); Hemoglobin 7.6 g/dL (13.5-17.5)
[2023-04-12 16:36] LABS: Hematocrit 24.1 % (38.8-50.0); Hemoglobin 7.8 g/dL (13.5-17.5)
[2023-04-12] MEDS: Atropine Sulfate 1 mg/10 ml Syringe ONE (17:22)
[2023-04-12] MEDS: Aspirin 81 mg Enteric Coated Tablet PO SCH ×2 (17:27)
[2023-04-12] MEDS: Acetaminophen/Codeine 30-300mg Tablet PO PRN (21:25)
[2023-04-12] MEDS: Amoxicillin/Potassium Clav 875 MG TAB PO SCH (21:26)
[2023-04-13] MEDS: Acetaminophen/Codeine 30-300mg Tablet PO PRN (01:30)
[2023-04-13 03:45] LABS: #Eosinphils 0.2 10x3/uL (0.0-0.5); #Monocytes 0.7 10x3/uL (0.0-1.1); #Neutrophils 7.9 10x3/uL (1.5-8.4); %Basophils 0.4 % (0.0-2.0); %Eosinophils 1.5 % (0.0-6.0); %Lymphocytes 6.5 % (18.0-47.0); %Monocytes 7.6 % (0.0-10.0); %Neutrophils 81.8 % (40.0-75.0); Hematocrit 26.9 % (38.8-50.0); Hemoglobin 8.5 g/dL (13.5-17.5); Mean Corpuscular HGB CONC 31.6 g/dL (32.0-36.0); Mean Corpuscular Hemoglobin 25.7 pg (27.0-33.0); Mean Corpuscular Volume 81.3 fl (81.2-95.1); Mean Platelet Volume 10.3 fl (7.4-10.4); Platelet Count 251 10x3/uL (150-450); RBC Distribution Width 18.5 % (11.5-14.5); Red Blood Cell (RBC) Count 3.31 10x6/uL (4.32-5.72); White Blood Cell (WBC) Count 9.7 10x3/uL (3.5-10.5)
[2023-04-13 03:55] LABS: ALT (SGPT) 20 U/L (8-55); AST (SGOT) 21 U/L (5-34); Alkaline Phosphatase 62 U/L (40-110); Anion Gap 13 mmol/L (10-20); BUN (Urea Nitrogen) 36 mg/dL (8.4-25.7); Bilirubin, Total 1.1 mg/dL (0.2-1.2); Calc. Creatinine Clearance 67 mL/min (70-130); Calcium 8.4 mg/dL (7.8-10.44); Carbon Dioxide 23 mmol/L (23-31); Cardiac Risk 4.7 (Less than 4.5); Chloride 105 mmol/L (98-107); Cholesterol 94 mg/dl (< 200 Desired); Estimated GFR 76; Globulin 2.9 g/dL (2.4-3.5); Glucose 106 mg/dL (83-110); HDL Cholesterol 20 mg/dL (>60 Neg Risk); LDL Cholesterol, Calculated 55 mg/dL; Potassium 4.8 mmol/L (3.5-5.1); Protein, Total 5.9 g/dL (5.8-8.1); Sodium 136 mmol/L (136-145); Triglycerides 94 mg/dL (Less than 150)
[2023-04-13] MEDS: Aspirin 81 mg Enteric Coated Tablet PO SCH (08:10)
[2023-04-13 10:31] VITALS: BMI 22.6
[2023-04-14 05:40] LABS: #Basophils 0.1 10x3/uL (0.0-0.2); #Eosinphils 0.2 10x3/uL (0.0-0.5); #Monocytes 0.7 10x3/uL (0.0-1.1); #Neutrophils 7.5 10x3/uL (1.5-8.4); %Basophils 0.6 % (0.0-2.0); %Eosinophils 1.8 % (0.0-6.0); %Lymphocytes 7.7 % (18.0-47.0); %Monocytes 7.1 % (0.0-10.0); %Neutrophils 80.3 % (40.0-75.0); Hematocrit 24.7 % (38.8-50.0); Hemoglobin 7.8 g/dL (13.5-17.5); Mean Corpuscular HGB CONC 31.6 g/dL (32.0-36.0); Mean Corpuscular Hemoglobin 25.6 pg (27.0-33.0); Platelet Count 246 10x3/uL (150-450); RBC Distribution Width 18.7 % (11.5-14.5); Red Blood Cell (RBC) Count 3.05 10x6/uL (4.32-5.72); White Blood Cell (WBC) Count 9.3 10x3/uL (3.5-10.5)
[2023-04-14 06:01] LABS: Anion Gap 12 mmol/L (10-20); BUN (Urea Nitrogen) 29 mg/dL (8.4-25.7); Calc. Creatinine Clearance 73 mL/min (70-130); Calcium 8.3 mg/dL (7.8-10.44); Carbon Dioxide 24 mmol/L (23-31); Chloride 105 mmol/L (98-107); Estimated GFR 89; Glucose 92 mg/dL (83-110); Potassium 4.5 mmol/L (3.5-5.1); Sodium 136 mmol/L (136-145)
[2023-04-14] MEDS: Sacubitril 24MG/Valsartan 26 MG TAB PO SCH (21:44)
[2023-04-15 05:56] LABS: #Basophils 0.1 10x3/uL (0.0-0.2); #Eosinphils 0.2 10x3/uL (0.0-0.5); #Monocytes 0.7 10x3/uL (0.0-1.1); #Neutrophils 6.4 10x3/uL (1.5-8.4); %Basophils 0.8 % (0.0-2.0); %Eosinophils 1.8 % (0.0-6.0); %Lymphocytes 10.4 % (18.0-47.0); %Monocytes 7.8 % (0.0-10.0); %Neutrophils 75.2 % (40.0-75.0); Hemoglobin 9.2 g/dL (13.5-17.5); Mean Corpuscular HGB CONC 31.7 g/dL (32.0-36.0); Mean Corpuscular Hemoglobin 26.7 pg (27.0-33.0); Mean Corpuscular Volume 84.3 fl (81.2-95.1); Mean Platelet Volume 10.1 fl (7.4-10.4); Platelet Count 234 10x3/uL (150-450); RBC Distribution Width 19.1 % (11.5-14.5); Red Blood Cell (RBC) Count 3.44 10x6/uL (4.32-5.72); White Blood Cell (WBC) Count 8.5 10x3/uL (3.5-10.5)
[2023-04-15 06:06] LABS: Anion Gap 13 mmol/L (10-20); BUN (Urea Nitrogen) 34 mg/dL (8.4-25.7); Calc. Creatinine Clearance 72 mL/min (70-130); Calcium 8.2 mg/dL (7.8-10.44); Carbon Dioxide 23 mmol/L (23-31); Chloride 104 mmol/L (98-107); Estimated GFR 88; Glucose 93 mg/dL (83-110); Potassium 4.5 mmol/L (3.5-5.1); Sodium 135 mmol/L (136-145)
[2023-04-15] MEDS ORDERED: PROPOFOL 20 ML ONE ×2 (08:05→08:49)
[2023-04-15] MEDS ORDERED: KETAMINE 100 MG/ML (5ML VIAL) ONE (08:05)
[2023-04-15] MEDS ORDERED: ePHEDrine Sulfate 50 MG/10 ML VIAL ONE (08:13)
[2023-04-15] MEDS ORDERED: Ondansetron HCl/PF 4 MG/2 ML Vial IVP PRN (09:14)
[2023-04-15] MEDS ORDERED: HYDROmorphone 2 MG/ML VIAL SLOW IVP PRN (09:14)
[2023-04-15] MEDS ORDERED: PACU-Morphine 4MG/ML VIAL SLOW IVP PRN (09:14)
[2023-04-15] MEDS ORDERED: Promethazine HCl 25 MG/ML VIAL IM PRN (09:14)
[2023-04-15] MEDS ORDERED: Polyethylene Glycol 3350 17 GM Packet PO PRN (10:32)
[2023-04-16 05:26] LABS: #Basophils 0.1 10x3/uL (0.0-0.2); #Eosinphils 0.2 10x3/uL (0.0-0.5); #Monocytes 0.7 10x3/uL (0.0-1.1); #Neutrophils 8.6 10x3/uL (1.5-8.4); %Basophils 0.7 % (0.0-2.0); %Eosinophils 1.4 % (0.0-6.0); %Lymphocytes 9.4 % (18.0-47.0); %Monocytes 6.5 % (0.0-10.0); %Neutrophils 79.7 % (40.0-75.0); Hematocrit 29.4 % (38.8-50.0); Hemoglobin 9.6 g/dL (13.5-17.5); Mean Corpuscular HGB CONC 32.7 g/dL (32.0-36.0); Mean Corpuscular Hemoglobin 27.3 pg (27.0-33.0); Mean Corpuscular Volume 83.5 fl (81.2-95.1); Mean Platelet Volume 9.6 fl (7.4-10.4); Platelet Count 252 10x3/uL (150-450); RBC Distribution Width 19.2 % (11.5-14.5); Red Blood Cell (RBC) Count 3.52 10x6/uL (4.32-5.72); White Blood Cell (WBC) Count 10.7 10x3/uL (3.5-10.5)
[2023-04-16 05:34] LABS: Anion Gap 14 mmol/L (10-20); BUN (Urea Nitrogen) 36 mg/dL (8.4-25.7); Calc. Creatinine Clearance 67 mL/min (70-130); Calcium 8.4 mg/dL (7.8-10.44); Carbon Dioxide 23 mmol/L (23-31); Chloride 104 mmol/L (98-107); Estimated GFR 79; Glucose 105 mg/dL (83-110); Potassium 4.6 mmol/L (3.5-5.1); Sodium 136 mmol/L (136-145)
[2023-04-16] MEDS: HYDROcodone/Acetaminophen 5/325 mg Tablet PO SCH (23:05)
[2023-04-17 04:20] LABS: #Basophils 0.1 10x3/uL (0.0-0.2); #Eosinphils 0.2 10x3/uL (0.0-0.5); #Monocytes 0.7 10x3/uL (0.0-1.1); #Neutrophils 6.3 10x3/uL (1.5-8.4); %Basophils 0.6 % (0.0-2.0); %Eosinophils 2.5 % (0.0-6.0); %Lymphocytes 11.1 % (18.0-47.0); %Monocytes 7.9 % (0.0-10.0); %Neutrophils 75.8 % (40.0-75.0); Hematocrit 27.3 % (38.8-50.0); Hemoglobin 8.9 g/dL (13.5-17.5); Mean Corpuscular HGB CONC 32.6 g/dL (32.0-36.0); Mean Corpuscular Hemoglobin 27.2 pg (27.0-33.0); Mean Corpuscular Volume 83.5 fl (81.2-95.1); Mean Platelet Volume 9.8 fl (7.4-10.4); Platelet Count 257 10x3/uL (150-450); RBC Distribution Width 19.2 % (11.5-14.5); Red Blood Cell (RBC) Count 3.27 10x6/uL (4.32-5.72); White Blood Cell (WBC) Count 8.3 10x3/uL (3.5-10.5)
[2023-04-17 04:30] LABS: Anion Gap 12 mmol/L (10-20); BUN (Urea Nitrogen) 45 mg/dL (8.4-25.7); Calc. Creatinine Clearance 65 mL/min (70-130); Calcium 8.2 mg/dL (7.8-10.44); Carbon Dioxide 25 mmol/L (23-31); Chloride 103 mmol/L (98-107); Estimated GFR 78; Glucose 109 mg/dL (83-110); Potassium 4.7 mmol/L (3.5-5.1); Sodium 135 mmol/L (136-145)
[2023-04-17] MEDS: Iron, Sodium Ferric Gluconate 125 MG in Sodium Chloride 0.9% 100 ML IVPB SCH (10:37)
[2023-04-17 12:02] VITALS: TEMP 98.2
[2023-04-17 14:10] VITALS: BP 118/64
== END 2023-04-17 12:55 | DRG 321 ==
LOC: CSHERS 14:50 → CSHERHOLD 17:04 → CSHTELE 21:03 → CSHIMCU 04-12 15:16 → CSHTELE 04-13 23:15
PROVIDERS: ADMIT Family Medicine; ATTEND Internal Medicine
PROC: 4A033R1 Measurement of Arterial Saturation, Peripheral, Percutaneous Approach (ICD-10-PCS; 2023-04-05)
PROC: 027236Z Dilation of Coronary Artery, Three Arteries with Three Drug-eluting Intraluminal Devices, Percutaneous Approach (ICD-10-PCS; principal; 2023-04-12)
PROC: 4A023N7 Measurement of Cardiac Sampling and Pressure, Left Heart, Percutaneous Approach (ICD-10-PCS; 2023-04-12)
PROC: B2151ZZ Fluoroscopy of Left Heart using Low Osmolar Contrast (ICD-10-PCS; 2023-04-12)
PROC: B2111ZZ Fluoroscopy of Multiple Coronary Arteries using Low Osmolar Contrast (ICD-10-PCS; 2023-04-12)
PROC: 30233N1 Transfusion of Nonautologous Red Blood Cells into Peripheral Vein, Percutaneous Approach (ICD-10-PCS; 2023-04-12)
PROC: 0W3P8ZZ Control Bleeding in Gastrointestinal Tract, Via Natural or Artificial Opening Endoscopic (ICD-10-PCS; 2023-04-15)
PROC: 3E033XZ Introduction of Vasopressor into Peripheral Vein, Percutaneous Approach (ICD-10-PCS; 2023-04-15)
DX: I48.0 Paroxysmal atrial fibrillation (principal); I50.23 Acute on chronic systolic (congestive) heart failure; K55.21 Angiodysplasia of colon with hemorrhage; K92.2 Gastrointestinal hemorrhage, unspecified; I25.110 Atherosclerotic heart disease of native coronary artery with unstable angina pectoris; I47.20 Ventricular tachycardia, unspecified; I11.0 Hypertensive heart disease with heart failure; I48.92 Unspecified atrial flutter; J44.9 Chronic obstructive pulmonary disease, unspecified; E78.5 Hyperlipidemia, unspecified; D72.829 Elevated white blood cell count, unspecified; R53.81 Other malaise; M94.0 Chondrocostal junction syndrome [Tietze]; J02.9 Acute pharyngitis, unspecified; M54.2 Cervicalgia; K21.9 Gastro-esophageal reflux disease without esophagitis; D50.0 Iron deficiency anemia secondary to blood loss (chronic); R29.6 Repeated falls; I95.9 Hypotension, unspecified; F17.210 Nicotine dependence, cigarettes, uncomplicated; S01.01XD Laceration without foreign body of scalp, subsequent encounter; Z86.73 Personal history of transient ischemic attack (TIA), and cerebral infarction without residual deficits; Z95.2 Presence of prosthetic heart valve; Z88.8 Allergy status to other drugs, medicaments and biological substances; Z91.018 Allergy to other foods; Z79.01 Long term (current) use of anticoagulants; Z79.899 Other long term (current) drug therapy; Z95.828 Presence of other vascular implants and grafts; Z98.890 Other specified postprocedural states; Z87.81 Personal history of (healed) traumatic fracture; Z91.148 Patient's other noncompliance with medication regimen for other reason; Z82.49 Family history of ischemic heart disease and other diseases of the circulatory system; Z71.6 Tobacco abuse counseling
CPT/HCPCS: 36415; 36430; 36600; 70450; 70490; 71045; 72125; 80048; 80053; 80061; 81001; 82274; 82805; 83605; 83690; 83735; 83880; 84484; 85025; 85610; 85730; 86850; 86900; 86901; 87040; 92928; 92960; 92978; 93005; 93010; 93312; 93454; 94640; 94760; 94762; 96365; 96366; 96375; 99152; 99153; C1753; C1769; C1874; C1887; C1889; C1894; C9600; J0153; J0461; J1160; J1644; J1650; J1940; J2001; J2250; J2704; J2916; J3010; J3475; J3490; J7620; P9016; Q9967